=== PATIENT | female | born 1995 | race Caucasian/White ===

== ENCOUNTER 2016-09-11 09:03 | Emergency (ER) | payer OTHER ==
[2016-09-11] MEDS ORDERED: ONDANSETRON 4 MG/2ML 2 ML VIAL ONE (09:56)
[2016-09-11] MEDS ORDERED: LACTATED RINGERS 1,000 ML ONE (09:56)
[2016-09-11 10:22] LABS: ABSOLUTE NEUTROPHIL COUNT 1.9 K/mm3 (1.8-7.7); BASO % 0.6 % (0.2-1.0); EOS % 0.6 % (0.9-2.9); HEMATOCRIT 44.7 % (37.0-47.0); HEMOGLOBIN 14.9 gm/l (12.0-16.0); IMM NEUT% 0.3 % (0-1); LYMPH # 1.3 (1.0-4.8); LYMPH % 35.7 % (15-45); MEAN CELL VOLUME 88.9 fl (81.0-99.0); MEAN CORPUSCULAR HEMOGLOBIN 29.6 pg (27.0-31.0); MEAN CORPUSCULAR HGB CONC 33.3 g/dl (33.0-37.0); MEAN PLATELET VOLUME 11.2 fl (7.4-10.4); MONO # 0.4 (0.0-0.8); MONO % 10.4 % (4-12); NEUT % 52.4 % (43-75); PLATELET COUNT 203 K/mm3 (130-400); RED CELL DISTRIBUTION WIDTH 13.7 % (11.5-14.5)
[2016-09-11 10:48] LABS: ALB/GLOB RATIO 1.5 (>1.0); ALBUMIN 4.7 gm/dL (3.5-5.7); CALCIUM 9.6 mg/dL (8.6-10.3)
[2016-09-11 11:54] LABS: URINE BILIRUBIN NEGATIVE (NEGATIVE); URINE BLOOD NEGATIVE (NEGATIVE); URINE GLUCOSE (UA) NEGATIVE (NEGATIVE); URINE LEUKOCYTE ESTERASE TRACE (NEGATIVE); URINE NITRITE NEGATIVE (NEGATIVE); URINE PROTEIN NEGATIVE (NEGATIVE); URINE UROBILINOGEN NORMAL (0-1 mg/dl)
[2016-09-11 11:56] LABS: URINE APPEARANCE SL CLOUDY; URINE COLOR YELLOW
[2016-09-11 12:02] LABS: URINE EPITHELIAL CELLS >25 /hpf; URINE RBC RARE /hpf
[2016-09-11 12:03] LABS: URINE BACTERIA 1+; URINE MUCUS 1+
== END 2016-09-11 12:34 | disposition home or self-care (01) ==
LOC: ED 09:03
DX: E86.0 Dehydration (principal); R11.2 Nausea with vomiting, unspecified; R19.7 Diarrhea, unspecified
CPT/HCPCS: 84703; 85025; 80053; 81001; 99283 ×2; 96374; 96361; J2405; J7120